=== PATIENT | female | born 1990 | race African-American/Black ===

== ENCOUNTER 2022-06-03 17:53 | Emergency (ER) | payer OTHER ==
[2022-06-03 18:48] VITALS: BP 152/90; PULSE 82; RESP 18; TEMP 98; BMI 26.7
[2022-06-03] MEDS ORDERED: BACITRACIN 15 GM TUBE TOPICAL OINTMENT TP ONE (20:29)
[2022-06-03] MEDS ORDERED: IBUPROFEN 600 MG TABLET (FP) PO ONE ×2 (20:30→20:41)
[2022-06-03] MEDS ORDERED: BACITRACIN 15 GM TUBE TOPICAL OINTMENT ONE (20:41)
== END 2022-06-03 22:57 | disposition home or self-care (01) ==
LOC: JERFT 17:53
DX: S80.12XA Contusion of left lower leg, initial encounter (principal); S00.83XA Contusion of other part of head, initial encounter; S80.812A Abrasion, left lower leg, initial encounter; V78.4XXA Person boarding or alighting from bus injured in noncollision transport accident, initial encounter
CPT/HCPCS: 99283-25